=== PATIENT | male | born 1975 | race African-American/Black ===

== ENCOUNTER 2023-02-09 09:32 | Emergency (ER) | payer SELFPAY ==
[2023-02-09] MEDS ORDERED: NITROGLYCERIN 0.4 MG/TAB SL ONE (09:52)
--- NOTE | 2023-02-09 10:15 | RAD REPORT ---
EXAM DESCRIPTION: RAD - Chest Single View - 02/09/2023 10:09 am CLINICAL HISTORY: CHEST PAIN Chest pain. COMPARISON: No comparisons FINDINGS: Portable technique limits examination quality. The lungs are grossly clear. The heart is normal in size. No displaced fractures. IMPRESSION: No acute intrathoracic process suspected.
[2023-02-09 10:30] LABS: Absolute Lymphocytes (CBC) 1.1 K/uL (0.7-4.9); Hematocrit 41.9 % (39.6-49.0); Lymphocytes % 15.3 % (15.3-44.8); MCV 88.8 fL (80-100); MPV 7.5 fL (7.6-11.3); Protime INR 1.01; RBC Red Blood Cell Count 4.72 M/uL (4.33-5.43)
[2023-02-09 10:33] LABS: Barbiturates NEGATIVE (NEGATIVE); Benzodiazepines NEGATIVE (NEGATIVE); Cocaine NEGATIVE (NEGATIVE); METHAMPHETAM NEGATIVE (NEGATIVE); Methadone NEGATIVE (NEGATIVE); Opiates NEGATIVE (NEGATIVE); Phencyclidine NEGATIVE (NEGATIVE); THC Cannibis NEGATIVE (NEGATIVE)
[2023-02-09 10:43] LABS: ALT/SGPT 35 U/L (16-61); AST/SGOT 30 U/L (15-37); Albumin 3.9 g/dL (3.4-5.0); Alkaline Phosphatase 86 U/L (45-117); BUN Blood Urea Nitrogen 15 mg/dL (7-18); Bicarbonate 29 mEq/L (21-32); Bilirubin Direct 0.2 mg/dL (0-0.2); Bilirubin Indirect, Calculated 1.1 mg/dL (0.2-0.8); Bilirubin Total 1.3 mg/dL (0.2-1.0); Glomerular Filtration Rate 76 ml/min (=/>90); Glucose Level 113 mg/dL (74-106); Magnesium 2.5 mg/dL (1.6-2.4); NT PRO-BNP 90 pg/mL (<125); Potassium 3.8 mEq/L (3.5-5.1); Protein, Total 8.3 g/dL (6.4-8.2); Sodium Level 134 mEq/L (136-145); Troponin High Sensitivity 16.3 pg/mL (<58.9)
--- NOTE | 2023-02-09 10:53 | EDPHYS ---
Physician Documentation [facility] Name: Renan Moreno Age: 47 yrs Sex: Male : 1975 Arrival Date: 02/09/2023 Time: 09:32 Bed 18 Private MD: ED Physician Jaime Almeida HPI: 02/09 11:41 This 47 yrs old Black Male presents to ER via EMS with complaints of Suicidal Ideation. rt 11:41 Patient with history of depressive disorder as well as congestive heart failure rt presents to the ED with suicidal ideation and a chest pressure, both of been present and constant for the past 2 days. Patient states that his symptoms have worsened with regards to the suicidality, not with regards to the chest pain. The patient denies shortness of breath, other acute complaints. Symptoms are moderate severity, no other aggravating or alleviating factors.. Historical: - Allergies: 09:33 Lisinopril; eh3 - Home Meds: 10:35 bumetanide 1 mg oral tablet 2 tabs 3 times per day [Active]; aspirin 81 mg Oral eh3 tablet,chewable daily [Active]; carvedilol 12.5 mg oral tablet 2 times per day [Active]; cyclobenzaprine 5 mg Oral tablet [Active]; gabapentin 300 mg oral capsule [Active]; Klor-Con M20 extended release tablet Oral [Active]; losartan 100 mg oral tablet daily [Active]; pantoprazole 20 mg oral tablet, delayed release (enteric coated) daily [Active]; diclofenac sodium topical [Active]; ergocalciferol (vitamin D2) oral [Active]; fluticasone propionate nasal [Active]; isosorbide mononitrate 60 mg Oral Tablet, Extended Release 24 hr every morning [Active]; Jardiance 10 mg oral tablet every morning [Active]; atorvastatin oral 100 mg tablet 1 tab daily [Active]; nicotine (polacrilex) 4 mg buccal lozenge [Active]; Nystatin Topical [Active]; salmeterol 50 mcg/dose inhalation Blister, With Inhalation Device [Active]; tiotropium bromide inhalation [Active]; Wellbutrin XL 150 mg Oral Tablet, Extended Release 24 hr daily [Active]; - PMHx: 09:33 Congestive heart failure; eh3 - Immunization history:: Adult Immunizations up to date. - Social history:: Smoking status: Patient reports the use of cigarette tobacco products, smokes one-half pack cigarettes per day, Patient/guardian denies using alcohol, the patient reports quitting approximately 0.2 years ago. - Family history:: not pertinent. ROS: 11:41 Constitutional: Negative for fever, chills, and weight loss, Respiratory: Negative for rt shortness of breath, cough, wheezing, and pleuritic chest pain, Abdomen/GI: Negative for abdominal pain, nausea, vomiting, diarrhea, and constipation, MS/Extremity: Negative for injury and deformity, Skin: Negative for injury, rash, and discoloration, Neuro: Negative for headache, weakness, numbness, tingling, and seizure. 11:41 Cardiovascular: Positive for chest pain, Negative for edema. 11:41 Psych: Positive for depression, suicidal ideation. Exam: 11:41 Constitutional: This is a well developed, well nourished patient who is awake, alert, rt and in no acute distress. Head/Face: Normocephalic, atraumatic. Chest/axilla: Normal chest wall appearance and motion. Nontender with no deformity. No lesions are appreciated. Cardiovascular: Regular rate and rhythm with a normal S1 and S2. No gallops, murmurs, or rubs. Normal PMI, no JVD. No pulse deficits. Respiratory: Lungs have equal breath sounds bilaterally, clear to auscultation and percussion. No rales, rhonchi or wheezes noted. No increased work of breathing, no retractions or nasal flaring. Abdomen/GI: Soft, non-tender, with normal bowel sounds. No distension or tympany. No guarding or rebound. No evidence of tenderness throughout. Skin: Warm, dry with normal turgor. Normal color with no rashes, no lesions, and no evidence of cellulitis. MS/ Extremity: Pulses equal, no cyanosis. Neurovascular intact. Full, normal range of motion. Neuro: Awake and alert, GCS 15, oriented to person, place, time, and situation. Cranial nerves II-XII grossly intact. Motor strength 5/5 in all extremities. Sensory grossly intact. Cerebellar exam normal. Normal gait. 11:41 ECG was reviewed by the Attending Physician. 11:41 Psych: Positive for suicidal ideation, negative for homicidal ideation. Vital Signs: 09:33 BP 111 / 72; Pulse 96; Resp 20; Temp 97.8; Pulse Ox 98% ; Weight 184.16 kg; Height 6 eh3 ft. 4 in. ; Pain 9/10; 09:33 BP 111 / 72; Pulse 86; Resp 20; Temp 97.8; Pulse Ox 98% ; eh3 09:33 Body Mass Index 49.42 (184.16 kg, 193.04 cm) [facility] 09:33 Pain Scale: Adult eh3 MDM: 09:36 Patient medically screened. rt 11:41 Differential diagnosis: Suicidal ideation, nonspecific chest pain, acute coronary rt syndrome, congestive heart failure. Data reviewed: vital signs, nurses notes, lab test result(s), EKG, radiologic studies. Consideration of Admission/Observation Escalation of care including admission/observation considered. Symptoms have been present and constant for 2 days, normal EKG, negative high-sensitivity troponin. Given chronicity of symptoms, 1 set of enzymes is sufficient to rule out an acute coronary syndrome. Patient does not require emergent hospitalization at this time for chest pain. Patient does have suicidal ideation, law enforcement states that he has warrants, will take the patient into custody and do suicide watch at shelter.. Test considered but Not performed: CT: Low suspicion for PE, CT angiogram not indicated. Care significantly affected by the following chronic conditions: Congestive Heart Failure. Care significantly affected by the following Social Determinants of Health: Inadequate housing. Scoring Tools HEART Score: History: Moderately Suspicious (1) ECG: Normal (0) Age: > 45 and < 65 years (1) Risk Factors: 1 or 2 Risk factors (1) Troponin: < or = 1 x Normal limit (0) Total Score = 3. 02/09 09:38 Order name: Basic Metabolic Panel; Complete Time: 10:47 rt 02/09 09:38 Order name: CBC with Diff; Complete Time: 10:39 rt 02/09 09:38 Order name: LFT's; Complete Time: 10:47 rt 02/09 09:38 Order name: Magnesium; Complete Time: 10:47 rt 08 09:38 Order name: NT PRO-BNP; Complete Time: 10:47 rt 02/09 09:38 Order name: Troponin HS; Complete Time: 10:47 rt 02/09 09:38 Order name: Acetaminophen; Complete Time: 10:47 rt 02/09 09:38 Order name: ETOH Level; Complete Time: 10:43 rt 02/09 09:38 Order name: PT-INR; Complete Time: 10:39 rt 02/09 09:38 Order name: Ptt, Activated; Complete Time: 10:39 rt 02/09 09:38 Order name: Salicylate; Complete Time: 11:04 rt 02/09 09:38 Order name: Urine Drug Screen; Complete Time: 10:39 rt 02/09 09:38 Order name: XRAY Chest (1 view); Complete Time: 10:20 rt 02/09 09:38 Order name: EKG; Complete Time: 09:39 rt 02/09 10:22 Order name: Diet Finger Food; Complete Time: 10:22 mm9 02/09 09:38 Order name: Cardiac monitoring; Complete Time: 10:35 rt 02/09 09:38 Order name: EKG - Nurse/Tech; Complete Time: 09:58 rt 02/09 09:38 Order name: IV Saline Lock; Complete Time: 10:36 rt 02/09 09:38 Order name: Labs collected and sent; Complete Time: 10:36 rt 02/09 09:38 Order name: O2 Per Protocol; Complete Time: 09:58 rt 02/09 09:38 Order name: O2 Sat Monitoring; Complete Time: 09:58 rt 02/09 09:38 Order name: Suicide Screening ([place]); Complete Time: 10:35 rt EC:41 Rate is 76 beats/min. Rhythm is regular, Normal Sinus Rhythm with No ectopy. QRS [place] rt is Normal. SC interval is normal. QRS interval is normal. QT interval is normal. No Q waves. T waves are Normal. No ST changes noted. Interpreted by me. Administered Medications: 10:00 Drug: Nitroglycerin Sublingual 0.4 mg Route: Sublingual; eh3 10:05 Follow up: Response: Pain is decreased eh3 Disposition Summary: 02/09/23 10:52 Discharge Ordered Problem: new rt Symptoms: have improved rt Condition: Stable rt Location: Law Enforcement(02/09/23 10:53) rt Diagnosis - Chest pain, unspecified rt - Suicidal ideations rt Followup: rt - With: Private Physician - When: 2 - 3 days - Reason: Discharge Instructions: - Discharge Summary Sheet rt - Nonspecific Chest Pain, Adult rt - Suicidal Feelings: How to Help Yourself rt Forms: - Medication Reconciliation Form rt - Thank You Letter rt - Antibiotic Education rt - Prescription Opioid Use rt - Patient Portal Instructions rt Signatures: Dispatcher [employer] Marie Arroyo RN RN eh3 Jaime Almeida MD MD rt Corrections: (The following items were deleted from the chart) 10:53 10:52 Home rt rt
--- NOTE | 2023-02-09 10:53 | ER ---
Nurse's Notes [facility] Name: Renan Moreno Age: 47 yrs Sex: Male : 1975 Arrival Date: 02/09/2023 Time: 09:32 Bed 18 Private MD: Diagnosis: Chest pain, unspecified;Suicidal ideations Presentation: 02/09 09:33 Chief complaint: EMS states: suicidal ideation started about 3am today after waking up 3 from a nightmare. Pt has history of SI. C/o left sided chest pain 03/18. EMS administered 325mg of aspirin en route. Ebola Screen: No symptoms or risks identified at this time. Risk Assessment: Do you want to hurt yourself or someone else? Patient reports no desire to harm self or others. Onset of symptoms was February 09, 2023. 09:33 Method Of Arrival: EMS: [facility] 09:33 Acuity: [place] 2 [facility] 09:33 Coronavirus screen: Vaccine status: Patient reports receiving the 2nd dose of the covid eh3 vaccine. Initial Sepsis Screen: Does the patient meet any 2 criteria? No. Patient's initial sepsis screen is negative. Does the patient have a suspected source of infection? No. Patient's initial sepsis screen is negative. Triage Assessment: 09:33 General: Appears distressed, uncomfortable, Behavior is cooperative, appropriate for [facility] age, anxious. Pain: Complains of pain in anterior aspect of left upper chest Pain does not radiate. Pain currently is 9 out of 10 on a pain scale. Quality of pain is described as pressure, sharp, Pain began 6 hours ago Is continuous. Neuro: Level of Consciousness is awake, alert, obeys commands, Oriented to person, place, time, situation. Cardiovascular: Capillary refill < 3 seconds Patient's skin is warm and dry. Respiratory: Airway is patent Respiratory effort is even, unlabored, Respiratory pattern is regular, symmetrical. GI: Abdomen is round non-distended. Derm: Skin is healthy with good turgor, Skin is pink, warm \\T\\ dry. Musculoskeletal: Circulation, motion, and sensation intact. Historical: - Allergies: 09:33 Lisinopril; eh3 - Home Meds: 10:35 bumetanide 1 mg oral tablet 2 tabs 3 times per day [Active]; aspirin 81 mg Oral eh3 tablet,chewable daily [Active]; carvedilol 12.5 mg oral tablet 2 times per day [Active]; cyclobenzaprine 5 mg Oral tablet [Active]; gabapentin 300 mg oral capsule [Active]; Klor-Con M20 extended release tablet Oral [Active]; losartan 100 mg oral tablet daily [Active]; pantoprazole 20 mg oral tablet, delayed release (enteric coated) daily [Active]; diclofenac sodium topical [Active]; ergocalciferol (vitamin D2) oral [Active]; fluticasone propionate nasal [Active]; isosorbide mononitrate 60 mg Oral Tablet, Extended Release 24 hr every morning [Active]; Jardiance 10 mg oral tablet every morning [Active]; atorvastatin oral 100 mg tablet 1 tab daily [Active]; nicotine (polacrilex) 4 mg buccal lozenge [Active]; Nystatin Topical [Active]; salmeterol 50 mcg/dose inhalation Blister, With Inhalation Device [Active]; tiotropium bromide inhalation [Active]; Wellbutrin XL 150 mg Oral Tablet, Extended Release 24 hr daily [Active]; - PMHx: 09:33 Congestive heart failure; eh3 - Immunization history:: Adult Immunizations up to date. - Social history:: Smoking status: Patient reports the use of cigarette tobacco products, smokes one-half pack cigarettes per day, Patient/guardian denies using alcohol, the patient reports quitting approximately 0.2 years ago. - Family history:: not pertinent. Screenin:33 [facility] ED Fall Risk Assessment (Adult) Score/Fall Risk Level 0 - 2 = Low Risk. Abuse eh3 screen: Denies threats or abuse. Denies injuries from another. Nutritional screening: No deficits noted. Tuberculosis screening: No symptoms or risk factors identified. Assessment: :33 Reassessment: No changes from previously documented assessment. See triage assessment. eh3 Psych: 09:33 Rose Suicide Severity Screening: In the past month, have you wished you were eh3 or wished you could go to sleep and not wake up? Patient responds "yes." "In the past month, have you actually had any thoughts of killing yourself?" Patient responds "yes." Based off the client's response additional Rose suicide severity screening questions to be further documented on paper forms. "In your lifetime, have you ever done anything, started to do anything, or prepared to do anything to end your life?" Patient responds "yes." Patient reports suicidal intent within 3 past months. Subjective: Patient's mood is sad, Delusions are denied, Hallucinations are auditory, visual, Having thoughts of suicide. Plan for suicide is overdose with insulin and/or pain medications. Objective: Patient is cooperative, Speech is normal, Affect is appropriate. Interventions: Removed personal items and placed in bag. Patient placed in hospital gown. Searched person for dangerous items. Urine collected and sent for urine drug test. Belonging list filled out. Patient reassessed during use of restraints. Patient is physically safe. Safety Checks: Personal items have been removed. Door is open. No visitors are present at this time. Patient uses of liquor, Last use was 2 months ago. Commitment: Patient will be a voluntary commitment. Vital Signs: 09:33 BP 111 / 72; Pulse 96; Resp 20; Temp 97.8; Pulse Ox 98% ; Weight 184.16 kg; Height 6 eh3 ft. 4 in. ; Pain 9/10; 09:33 BP 111 / 72; Pulse 86; Resp 20; Temp 97.8; Pulse Ox 98% ; eh3 09:33 Body Mass Index 49.42 (184.16 kg, 193.04 cm) eh3 09:33 Pain Scale: Adult eh3 ED Course: 09:33 Patient arrived in ED. eh3 09:33 Arm band placed on. eh3 09:33 Patient has correct armband on for positive identification. Bed in low position. Call eh3 light in reach. Side rails up X2. Valuables inventory done. See valuables checklist. Provided Education on: suicidal precautions. Client placed on continuous cardiac and pulse oximetry monitoring. NIBP monitoring applied. Sitter at bedside. 09:36 Jaime Almeida MD is Attending Physician. rt 09:47 Triage completed. eh3 10:00 Inserted saline lock: 20 gauge in right antecubital area, using aseptic technique. eh3 Blood collected. 10:11 XRAY Chest (1 view) In Process Unspecified. EDMS 10:35 Marie Hernandez, BRYN is Primary Nurse. eh3 10:35 No provider procedures requiring assistance completed. eh3 11:09 IV discontinued, intact, bleeding controlled, No redness/swelling at site. Pressure eh3 dressing applied. Administered Medications: 10:00 Drug: Nitroglycerin Sublingual 0.4 mg Route: Sublingual; [facility] 10:05 Follow up: Response: Pain is decreased [facility] Medication: 10:35 VIS not applicable for this client. [facility] Outcome: 10:52 Discharge ordered by . rt 11:09 Discharged to Law Enforcement [facility] 11:09 Condition: stable 11:09 Discharge instructions given to patient, Instructed on discharge instructions, follow up and referral plans. Demonstrated understanding of instructions, follow-up care. 11:09 Patient left the ED. 3 Signatures: Dispatcher [employer] Marie Arroyo RN RN 3 Jaime Almeida MD MD rt
[2023-02-09 11:32] VITALS: BP 111/72; TEMP 97.8; O2SAT 98
--- NOTE | 2023-02-12 13:13 | EKG ---
Test Date: 2023-02-09 Test Time: 09:39:39 Crime Scene Evidence Technician: MILA MEASUREMENT RESULTS: Intervals: Rate: 76 AL: 186 QRSD: 110 QT: 400 QTc: 450 [place]: P: 69 AL: 186 QRS: -19 T: 60 INTERPRETIVE STATEMENTS: Normal sinus rhythm Normal ECG No previous ECG available for comparison Electronically Signed On 02-12-23 13:09:03 CDT by Ector Mathew
== END 2023-02-09 11:09 ==
LOC: ER 09:32
DX: R45.851 Suicidal ideations (principal); R07.9 Chest pain, unspecified
CPT/HCPCS: 36415; 71045; 80048; 80076; 80143; 80179; 80307; 82077; 83735; 83880; 84484; 85025; 85610; 85730; 93005; 99285